=== PATIENT | male | born 1965 | race Caucasian/White ===

== ENCOUNTER 2019-04-07 16:44 | Emergency (ER) | payer MEDICARE ==
--- NOTE | 2019-04-07 17:19 | RAD ---
EXAM DESCRIPTION: Shoulder,Right 2 or More Views CLINICAL HISTORY: fall COMPARISON: None Available. TECHNIQUE: Two views of the right shoulder. FINDINGS: No displaced fracture or dislocation of the right shoulder. The alignment of the acromioclavicular and glenohumeral joints are intact. Lower cervical spine hardware fixation. IMPRESSION: 1. No acute osseous abnormality. Electronically signed by: Yonas Franco DO 04/07/2019 5:18 PM CDT
--- NOTE | 2019-04-07 17:58 | RAD ---
EXAM DESCRIPTION: Ankle,Right 3 Views CLINICAL HISTORY: 53 years, Male, fall COMPARISON: None. TECHNIQUE: AP/lateral/oblique of the Right ankle FINDINGS/IMPRESSION: Images of the right ankle demonstrate severely comminuted and mildly displace fracture through the body of the calcaneus with slightly reduced Bohler's angle. Possible fracture extension into the subtalar joint. Moderate soft tissue swelling surrounds the right ankle and hindfoot. A small ankle joint effusion may be present. Electronically signed by: Yonas Franco DO 04/07/2019 5:57 PM CDT
[2019-04-07] MEDS ORDERED: HYDROcodone 10MG/APAP 325MG 1 EA TAB PO ONE (18:18)
--- NOTE | 2019-04-07 18:43 | ED.PDOC ---
History of Present Illness - General Chief Complaint: Trauma Stated Complaint: fall from ladder Time Seen by Provider: 04/07/19 18:15 Source: patient - History of Present Illness Initial Comments: Patient presents after falling approximately four feet from a ladder. He says he landed on his right shoulder but he also has right ankle pain. The right shoulder pain is constant and worse with movement. The right ankle pain is constant, throbbing, non-radiating, worse with movement, better with rest. He did not hit his head nor lose consciousness. No other complaints. Timing/Duration: 1/2 hour Severity: moderate Improving Factors: rest Worsening Factors: movement Associated Symptoms: denies symptoms Allergies/Adverse Reactions: Allergies NO KNOWN ALLERGY Allergy (Verified 04/07/19 16:50) Home Medications: Ambulatory Orders Acetaminophen W/ Codeine [Tylenol W/ CODEINE #3] 1 ea PO Q4HR PRN #15 04/07/19 Review of Systems - Review of Systems Constitutional: States: no symptoms reported EENTM: States: no symptoms reported Respiratory: States: no symptoms reported Cardiology: States: no symptoms reported Gastrointestinal/Abdominal: States: no symptoms reported Genitourinary: States: no symptoms reported Musculoskeletal: States: see HPI Skin: States: no symptoms reported Neurological: States: no symptoms reported Endocrine: States: no symptoms reported Hematologic/Lymphatic: States: no symptoms reported Past Medical History (General) - Patient Medical History Hx Seizures: No Hx Stroke: No Hx Congestive Heart Failure: No Hx Thyroid Disease: No Hx Diabetes: No - hypoglycemia Surgical History: other Family Medical History - Family History Father Family History: No Known Physical Exam - Physical Exam General Appearance: Alert Eye Exam: bilateral normal Ears, Nose, Throat: normal ENT inspection Neck: non-tender, full range of motion Respiratory: lungs clear, normal breath sounds Cardiovascular/Chest: normal peripheral pulses, regular rate, rhythm Gastrointestinal/Abdominal: normal bowel sounds, non tender, soft Back Exam: normal inspection, no CVA tenderness, no vertebral tenderness Extremity: normal range of motion, other - edema around the right foot and ankle. TTP proximally and dorsally. Full sensation throughout the entire right foot. Capillary refill less than 2 second in the right toenail beds. Patient can flex and extend the toes with 5/5 strength but will ont voluntarily move the right foot due to pain. Right shoulder has 5/5 strength to AROM in all directions. TTP over greater tuberosity of the right humerus. 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 Shoulder radiographs and lumbar radiographs showed no acute fracture nor subluxation. Patient was given hydrocodone/APAP 10/325 in the E.D. and RX for hydrocodone (take home,ER pack) and Tylenol #3. Instructions to follow up with Dr. Hough on Thursday or Thursday. Care instructions given. E.R. warnings given. Questions were elicited and answered. Patient voiced understanding and agreement with the plan. Departure - Departure Clinical Impression: Fracture closed, calcaneus Disposition: Discharge to Home or Self Care Condition: Good Departure Forms: ED Discharge - Pt. Copy, Patient Portal Self Enrollment Instructions: Heel Fracture (DC) Diet: resume usual diet Activity: other - no weight bearing on the right foot. Use crutches. Prescriptions: Acetaminophen W/ Codeine [Tylenol W/ CODEINE #3] 1 ea PO Q4HR PRN #15 PRN Reason: Pain Home Medications: Ambulatory Orders Acetaminophen W/ Codeine [Tylenol W/ CODEINE #3] 1 ea PO Q4HR PRN #15 04/07/19 Additional Instructions: Call Dr. Hough's office in the morning and get an appointment for Thursday or Thursday. Use the crutches. Do not put weight on the right foot. Do not drive, operate heavy machinery, or drink alcohol after taking pain medications. Return to the E.R. if you lose sensation in the right foot or for increasing pain. Return if the right toes become pale or numb.
--- NOTE | 2019-04-07 19:39 | RAD ---
EXAM DESCRIPTION: Lumbar Spine 5 Views CLINICAL HISTORY: 53 years Male fall from ladder COMPARISON: None TECHNIQUE: AP, oblique and lateral views of the lumbar spine as well as a coned down lateral view of the lumbosacral junction are obtained. FINDINGS: OSSEOUS: There are no discernible acute fractures or osteolytic/blastic lesions. The pars interarticulares are intact. There is no evidence of dislocation or subluxation. There is multilevel moderate vertebral body marginal osteophytosis as well as moderate facet arthropathy at L4-5 and L5-S1 indicating spondylosis. Vertebral body heights are maintained. There is moderate narrowing of the disc spaces at L1-2, L2-3 and L3-4. There is mild dextroconvex lumbar curve. The visualized SI joints are preserved and sacral foraminal lines are intact. SOFT TISSUES The paraspinous and presacral soft tissues are unremarkable. IMPRESSION: No acute osseous abnormalities. Multilevel lumbar spondylosis with a mild dextroconvex lumbar curve. Electronically signed by: Rosemarie Caballero MD 04/07/2019 7:38 PM CDT
[2019-04-07] MEDS ORDERED: HYDROCOD/APAP 5/325 (ER DISP) #3 TAB PO ONE (19:58)
[2019-04-07 21:40] VITALS: BP 159/97; O2SAT 99
[2019-04-07 21:46] VITALS: TEMP 97.8
== END 2019-04-07 20:10 | disposition home or self-care (01) ==
LOC: ER 16:44
DX: S92.011A Displaced fracture of body of right calcaneus, initial encounter for closed fracture (principal); M25.511 Pain in right shoulder; W11.XXXA Fall on and from ladder, initial encounter; Y92.9 Unspecified place or not applicable